=== PATIENT | male | born 1970 | race Caucasian/White ===

== ENCOUNTER 2017-07-19 10:08 | Inpatient (IN) | payer OTHER ==
[~2017-07-19] VITALS: Ht 182.8 cm; Wt 74.5 kg
--- NOTE | ~2017-07-19 | CON ---
[place], [place] REPORT OF CONSULTATION NAME: [facility]: [id number] UNIT #: [id number] ROOM: [facility] DOCTOR: NICK MITCHELL MD BIRTHDATE: [birth year] DOS: 07/27/2017 PSYCHIATRIC CONSULT. CHIEF COMPLAINT: "I got a go to work this morning, I need to get out of here." HISTORY OF PRESENT ILLNESS: This is a 47-year-old white male who was admitted to ICU following significant alcohol detoxification. The patient has been actively going through DTs and has been found to be extremely delirious. At times, the patient is alert and oriented; at other times, he is talking out of his head. He has repeatedly stated that he needs to help his brother who has been visiting him. This has not happened whatsoever. This morning in my interview, he was convinced that he needed to go to work here. He was not able to tell me how long he has been here nor was he able to carry on a lengthy conversation due to his overall confusion. Chart indicates that he drinks approximately 12-18 beers per day and smokes a pack of cigarettes. He denies any type of other illicit drug use. The patient does have a history of psychiatric illness and has been on multiple psychotropics. MENTAL STATUS: The patient is alert and oriented to self only. He is not oriented to time frame. His responses are short and simple at times, nonsensical. There are no overt auditory or visual hallucinations. There is presence of delusions and he is rather disjointed in his thinking. Short term memory is poor. DIAGNOSIS: Major depression, recurrent; alcohol dependence and alcohol withdrawal. PLAN: I will discontinue his trazodone and Depakote. I am afraid the Depakote along with his alcohol abuse will put too much of a tax on his liver. I will check a serum ammonia level this morning, in case it is high, this could be also a reason for his episodic confusion. I will start him on Risperdal 1 mg twice daily to decrease some of the delusions and mood lability and use Remeron 15 mg at bedtime, also to aid sleep. He would be a good candidate once he is through the DTs to start on either Vivitrol or Campral to decrease the alcohol craving. Should he require further intervention, please feel free to contact me at any time. [place], [place] REPORT OF CONSULTATION NAME: SASHAJAMI D UNIT #: [id number] ROOM: [facility] DOCTOR: NICK MITCHELL MD BIRTHDATE: [birth year] NICK MITCHELL MD CM:CONSTR:REPORT OF CONSULTATION [id number] 07/27/17 1022 interface
--- NOTE | ~2017-07-19 | CON ---
[place], [place] REPORT OF CONSULTATION NAME: JAMI BAEZ [facility] #: [id number] UNIT #: [id number] ROOM: [facility] DOCTOR: KAIT SMALL ED.D) BIRTHDATE: [birth year] DOS: 07/26/2017 HISTORY OF PRESENT ILLNESS: The patient is a 47-year-old male, referred by the hospitalist for psychological evaluation. At the present time, this patient is in the intensive care unit at [facility]. He states he is single and has 4 adult children. 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 His family physician is Dr. Agarwal. His medical history is pertinent for seizure disorder, COPD, myocardial infarction, alcohol dependence, alcohol withdrawal delirium. His medications include trazodone, Depakote, Geodon, Keppra, Lovenox, Zofran, Senokot and albuterol. This patient states that he does not use any drugs that are not prescribed, but he drinks significant amounts of beer. Each day, he drinks 12 to 18 beers per day and smokes 1 pack of cigarettes per day. He did go to rehabilitation for his alcoholism one time at [facility]. He states that he knows he is an alcoholic and he needs treatment. He is in the hospital under [facility]. When I first evaluated this patient, he was fairly lucid. I went back to see him shortly later and he appeared to be somewhat delirious. He is obviously suffering from alcohol withdrawal delirium. Most likely his cognitive status will clear, but it is difficult to determine if and when this will occur. He may be placed in a nursing facility short term or also a rehabilitation center short term and case management is working on that issue right now. In the meantime, he clearly is delirious and will need long-term rehabilitation, most likely. DIAGNOSIS: 1. Alcohol dependence. 2. Alcohol withdrawal delirium. RECOMMENDATIONS: The patient will need 24-hour care once he is discharged from the hospital until his mental status clears. Thank you very much for this consult. KAIT SMALL ED.D CM:CONSTR:REPORT OF CONSULTATION [id number] 07/27/17 0743 interface
--- NOTE | ~2017-07-19 | CON ---
[place], [place] REPORT OF CONSULTATION NAME: [facility] [id number] UNIT #: [id number] ROOM: [facility] DOCTOR: DAVE PAVON BIRTHDATE: [birth year] DOS: 07/21/2017 HISTORY OF PRESENT ILLNESS: This is a 47-year-old male with past medical history of alcohol abuse, COPD, who presents to [facility] shakes and seizures. The patient with [facility] before apparently history of homeless as well. Apparently, the patient was sober for approximately 5 months and then started drinking again past withdrawals from alcohol is required him to be intubated. PAST MEDICAL HISTORY: COPD, emphysema, seizure, NM. MENTAL STATUS: The patient was nonverbal. He just received Haldol and Geodon. Apparently, he was discharged yesterday by the doctor and then 6 hours later, they found him down the lobby, waiting for ride and confused, so he was brought back up to the unit. He became quite agitated during that time, so I could not get a good mental status on him. At this point in time, I am just going to try to stabilize some of the medications, reviewed labs and then once he becomes a little more alert and oriented, we can re-evaluate at that time. I do see that some of the left lights are off. His liver enzymes are elevated. His alcohol on the was quite high. PLAN: He is currently on 250 mg of Depakote in the morning and 500 mg at the night to keep him on that. He is getting trazodone 50 mg at bedtime for sleep and then another dose p.r.n. if needed for sleep. We will continue with that as well. I am getting rid of the Benadryl at this point in time, we continue with the Ativan p.o. or IM for anxiety and agitation. I am going to stop the Haldol and try Geodon 20 mg q.4 hours, no more than 2 doses in 24-hour period for increased agitation and behaviors. He also has p.r.n. Vistaril available to him as well. He is also on withdrawal protocol, it appears. Try to avoid Haldol at this point in time. Since, he is sedated right now, we will allow him to acclimate, calm down and then we can re-evaluate if we need to add anything else. He is resting comfortably. JAYNE PAVON CNP CM:CONSTR:REPORT OF CONSULTATION 1105 07/21/172025 interface
[2017-07-19 11:10] VITALS: BP 126/84
--- NOTE | 2017-07-19 11:27 | NUR ---
MSADMTime: N A 47 year old MALE admitted to under services of SHABANA COWAN DO Pt. [place] Chief complaint: WITHDRAWAL. FR[place] GILLESPIE
[2017-07-19 11:55] LABS: BILIRUBIN NEGATIVE (NEGATIVE); BLOOD TRACE-INTACT (NEGATIVE); CLARITY CLEAR (CLEAR); COLOR YELLOW (YELLOW); GLUCOSE NEGATIVE (NEGATIVE); KETONE NEGATIVE (NEGATIVE); LEUKO ESTERASE NEGATIVE (NEGATIVE); NITRITE NEGATIVE (NEGATIVE); PH 5.5 (5.0-9.0); SPECIFIC GRAVITY <= 1.005 (1.005-1.030); UROBILINOGEN 0.2 E.U./dl (0.2-1.0)
[2017-07-19 11:58] LABS: BASO # 0.1 10*3/uL (0.0-0.1); EOS # 0.1 10*3/uL (0.0-0.4); EOS % 1.8 % (1.0-4.0); HEMATOCRIT 43.1 % (42.0-52.0); HEMOGLOBIN 15.4 g/dl (14.0-18.0); LYMPH # 2.3 10*3/uL (1.3-4.4); LYMPH % 36.1 % (27.0-41.0); MEAN CELL VOLUME 92.1 fl (80.0-94.0); MEAN CORPUSCULAR HGB 32.9 pg (27.0-31.0); MEAN CORPUSCULAR HGB CONC 35.7 g/dl (33.0-37.0); MEAN PLATELET VOLUME 10.1 fl (9.6-12.3); MONO # 0.7 10*3/uL (0.1-1.0); MONO % 11.9 % (3.0-9.0); NEUT # 3.1 10*3/uL (2.3-7.9); PLATELET COUNT AUTOMATED 105 10*3/uL (130-400); RED BLOOD COUNT 4.68 10*6/uL (4.50-5.90); RED CELL DISTRI WIDTH 11.8 % (0-14.5); WHITE BLOOD COUNT 6.2 10*3/uL (4.8-10.8)
[2017-07-19 12:00] LABS: RBC 0-2 rbc/hpf (0-2)
[2017-07-19 12:12] LABS: ALBUMIN 3.8 gm/dl (3.1-4.5); ALKALINE PHOSPHATASE 122 U/L (45-117); BUN 3 mg/dl (7-24); CHLORIDE 84 mmol/L (98-107); CREATININE 0.55 mg/dL (0.70-1.30); LIPASE 109 U/L (73-393); POTASSIUM 4.5 mmol/L (3.5-5.1); SGOT/AST 144 IU/L (3-35); SGPT/ALT 98 U/L (12-78); SODIUM 123 mmol/L (136-145); TOTAL PROTEIN 8.1 gm/dL (6.4-8.2)
[2017-07-19 12:12] LABS: URINE AMPHETAMINES < 1000 (1000ng/ml); URINE BARBITURATES < 200 (200ng/ml); URINE BENZODIAZEPINES < 200 (200ng/ml); URINE CANNABINOIDS (THC) < 50 (50ng/ml); URINE COCAINE < 300 (300ng/ml); URINE METHADONE < 300 (300ng/ml); URINE OPIATES < 300 (300ng/ml)
[2017-07-19 12:18] LABS: URINE PHENCYCLIDINE < 25 (25ng/ml)
[2017-07-19] MEDS ORDERED: TRAZODONE50 MG PO (13:25)
[2017-07-19] MEDS ORDERED: Motrin,Rufen800 MG PO (13:25)
[2017-07-19] MEDS ORDERED: DEPAKOTE DR500 MG PO (13:28)
[2017-07-19] MEDS ORDERED: KEPPRA500 MG PO (13:28)
[2017-07-19] MEDS ORDERED: DEPAKOTE250 MG PO (13:30)
[2017-07-19] MEDS ORDERED: SYMBICORT (13:38)
[2017-07-19] MEDS ORDERED: PROVENTIL HFA6.7 GM INH ×2 (13:39→13:41)
--- NOTE | 2017-07-19 13:42 | NUR ---
[facility] CALLED MEDS VERIFIED, DR CHAVEZ NOTIFIED.
[2017-07-19 16:00] VITALS: BP 117/69
--- NOTE | 2017-07-19 17:12 | NUR ---
PT MEDICATED WITH IV ATIVAN FOR C/O "FEELING LIKE I MAY HAVE A SIEZURE". CALL LIGHT IN REACH. WILL MONITOR
[2017-07-19 20:00] VITALS: BP 115/62
--- NOTE | 2017-07-19 20:00 | NUR ---
AAOX3 LYING IN BED. SKIN WARM & DRY. BANANA BAG INFUSING WITHOUT DIFFICULTY INTO LEFT ANTECUBITAL; SITE ASYMPTOMATIC. PT. VOICES NO C/O AT THIS TIME. CALL LIGHT WITHIN REACH.
--- NOTE | 2017-07-19 20:33 | NUR ---
MEDICATED WITH ROBAXIN FOR MUSCLE ACHES PAINS & VISTARIL FOR ANXIETY.
--- NOTE | 2017-07-19 22:00 | NUR ---
RESTING IN BED; MEDICATIONS GIVEN EARLIER APPEAR TO BE EFFECTIVE. TOOK PO MEDICATIONS WITHOUT DIFFICULTY. CALL LIGHT WITHIN REACH.
[2017-07-20] VITALS: BP 140/80
--- NOTE | 2017-07-20 | NUR ---
MEDICATED WITH ATIVAN & TRAZODONE.
--- NOTE | 2017-07-20 02:00 | NUR ---
APPEARS TO BE SLEEPING; MEDICATIONS GIVEN EARLIER APPARENTLY EFFECTIVE.
[2017-07-20 04:00] VITALS: BP 143/77
[2017-07-20 06:12] LABS: BASO # 0.1 10*3/uL (0.0-0.1); BASO % 1.1 % (0.0-1.0); EOS # 0.2 10*3/uL (0.0-0.4); EOS % 2.7 % (1.0-4.0); HEMATOCRIT 41.7 % (42.0-52.0); HEMOGLOBIN 14.3 g/dl (14.0-18.0); LYMPH # 1.6 10*3/uL (1.3-4.4); LYMPH % 24.3 % (27.0-41.0); MEAN CELL VOLUME 93.7 fl (80.0-94.0); MEAN CORPUSCULAR HGB 32.1 pg (27.0-31.0); MEAN CORPUSCULAR HGB CONC 34.3 g/dl (33.0-37.0); MEAN PLATELET VOLUME 10.6 fl (9.6-12.3); MONO # 1.1 10*3/uL (0.1-1.0); MONO % 16.4 % (3.0-9.0); NEUT # 3.5 10*3/uL (2.3-7.9); PLATELET COUNT AUTOMATED 98 10*3/uL (130-400); RED BLOOD COUNT 4.45 10*6/uL (4.50-5.90); WHITE BLOOD COUNT 6.4 10*3/uL (4.8-10.8)
[2017-07-20 06:29] LABS: BUN 8 mg/dl (7-24); CHLORIDE 97 mmol/L (98-107); POTASSIUM 4.1 mmol/L (3.5-5.1); SODIUM 134 mmol/L (136-145)
--- NOTE | 2017-07-20 06:30 | NUR ---
CALLED DR. UMANZOR PERTAINING TO PT'S HEART RATE BEING ELEVATED SEVERAL TIMES THROUGHOUT THE NIGHT. NO NEW ORDERS RECEIVED.
[2017-07-20 06:31] LABS: CREATININE 0.64 mg/dL (0.70-1.30); PHOSPHOROUS 3.9 mg/dL (2.5-4.9)
--- NOTE | 2017-07-20 07:30 | NUR ---
ASSUMED CARE OF PT AT THIS TIME, PT RESTING IN BED DOING BREATHING TREATMENT AT THIS TIME
[2017-07-20 08:00] VITALS: BP 152/90
--- NOTE | 2017-07-20 09:20 | NUR ---
PT C/O INCREASED ANXIETY, ADMINISTERED ATUVAN PRN PER ORDERS, WILL MONITOR EFFECTS. PT ALSO C/O MUSCLE CRAMPS AND REQUESTED SOMETHING TO ASSIST WITH SYMPTOMS ADMINSITERED ROBAXIN PO PRN PER ORDERS WILL MONIOR EFFECTS
--- NOTE | 2017-07-20 11:20 | NUR ---
PT GIVEN PRN PO MOTRIN AND VISTARIL FOR COMPLAINTS OF HEADACHE AND ANXIETY. WILL MONITOR EFFECTIVENESS.
[2017-07-20 12:00] VITALS: BP 134/90
--- NOTE | 2017-07-20 12:04 | NUR ---
PT RESTING IN BED WITH EYES CLOSED, MEDS SEEM TO BE EFFECTIVE.
--- NOTE | 2017-07-20 14:52 | NUR ---
PT STATING THAT NICODERM PATCH NOT EFFECTIVE REQUESTED ALTERNATIVE, ADMINISTERED NICOTROL INHALER WILL MONITOR EFFECTS
[2017-07-20 16:00] VITALS: BP 145/87
--- NOTE | 2017-07-20 19:53 | NUR ---
PRN KEKE AND VISTARIL GIVEN D/T PT. SHOWING ANXIETY AND C/O ACHYNESS. CALL LIGHT WITHIN REACH.
[2017-07-20 20:00] VITALS: BP 144/98
--- NOTE | 2017-07-20 20:23 | NUR ---
PRN MEDICATIONS GIVEN ARE EFFECTIVE, PT. RESTING COMFORTABLY.
--- NOTE | 2017-07-20 23:18 | NUR ---
Shift chart check completed.
[2017-07-21] VITALS: BP 155/98
--- NOTE | 2017-07-21 03:10 | NUR ---
PT AT THIS TIME REQUESTING TO LEAVE HOSPITAL. PATIENT STATES THAT HE CALLED HIS MOTHER AND THAT SHE IS ON HER WAY TO PICK HIM UP. THIS NURSE ASKED THE PATIENT IF HE KNEW WHERE HE WAS, PATIENT STATED THAT HE WAS IN A DOCTORS OFFICE IN [facility]. THIS NURSE STATED THAT HE WAS IN [facility]. THE PATIENT STATED THAT HE DIDN'T REMEMBER. THIS NURSE STATED THAT THE DOCTOR WOULD HAVE TO TALK TO THE PATIENT BEFORE HE LEFT. DR. REED CALLED AT THIS TIME
--- NOTE | 2017-07-21 03:15 | NUR ---
DR. REED UP TO TALK TO PATIENT. STATED THAT THE PATIENT IS ALERT AND ORIENTED TO PERSON AND TIME, BUT NOT PLACE. DR. REED STATED THAT HE WAS NOT A HARM TO HIMSELF OR ANYONE ELSE SO WE CANNOT STOP HIM FROM LEAVING.
--- NOTE | 2017-07-21 03:20 | NUR ---
IN TO GET PATIENT TO SIGN AMA PAPER. PATIENT STATED THAT HIS MOM WAS HERE AND THAT HE HAD TO GO. PATIENT POINTED OUT THE WINDOW AND STATED THAT SHE WAS OUT THERE, THIS NURSE STATED THAT THERE WERE NO CARS OUT THERE. PATIENT SIGNED AMA PAPER. HEP LOCK REMOVED FROM LEFT AC AND OUTSIDE MEDICAL SALES REPRESENTATIVE DISCONTINUED. PATIENT PROCEEDED TO WALK DOWN HALLWAY TOWARD LOCKED ELEVATORS, DROPPED HIS BAG AND THEN PROCEEDED TO ROAM THE HALLWAY.
--- NOTE | 2017-07-21 03:25 | NUR ---
RENAN SANTANA, AUDIO VISUAL ENGINEER NOTIFIED OF PATIENT LEAVING AMA AND OF THE SITUATION.
--- NOTE | 2017-07-21 04:30 | NUR ---
AT THIS TIME PATIENT FOUND WONDERING AROUND DOWN IN EMERGENCY ROOM LOBBY. PATIENT REDIRECTED BACK UPSTAIRS TO ROOM HE WAS PREVIOUSLY ADMITTED TO. SELVAGE MACHINE OPERATOR RENAN SANTANA AND DR. REED UP TO FLOOR. PATIENT STATES THAT IT IS AGAINST HIS GNOSTICIST TO HOLD HIM HERE AND THAT HE WANTS TO LEAVE. SISTER AND MOTHER BELIEVED, PER PATIENT, THAT HE WAS BEING KICKED OUT OF THE HOSPITAL. THE PATIENT LEFT OF HIS OWN FREE WILL. AT THIS TIME, THE DISCHARGE IS BEING REVERSED AND THE PATIENT IS BEING BROUGHT BACK TO THE FLOOR FOR INPATIENT SERVICES. PATIENT UPSET. DR. REED ORDERED 5MG OF IM HALDOL AND 2MG OF IM ATIVAN TO BE GIVEN
--- NOTE | 2017-07-21 04:59 | NUR ---
AT THIS TIME IM HALDOL AND ATIVAN GIVEN FOR AGITATION. PATIENT COOPERATIVE AND UNDERSTANDING. STATED THAT HE WANTED TO RELAX AND THEN GO HOME. THIS NURSE EXPLAINED TO THE PATIENT THAT HE IS IN NO STATE TO GO HOME AT THIS TIME. THIS NURSE STATED THAT HE WAS IN [place] AND NOT LIKE [place] LIKE HE BELIEVED HE WAS. PATIENT IS EASILY REDIRECTED. CALL LIGHT WITHIN REACH, PATIENT NOW LAYING IN BED. WILL CONTINUE TO MONITOR
--- NOTE | 2017-07-21 05:19 | NUR ---
CALLED DR. REED AT THIS TIME PERTAINING TO IF HE WANTED TO PUT THE PATIENT BACK ON THE MONITOR AND ATTEMPT TO RESTART THE IV. DR. REED ASKED IF THE PATIENT WAS CALM AT ALL, THIS NURSE STATED THAT HE JUST RECENTLY ATTEMPTED TO GET OUT OF BED, DR. REED STATED TO NOT ATTEMPT TO PUT HIM BACK ON THE MONITOR OR START ANOTHER IV UNTIL THE PATIENT IS CALMED DOWN.
--- NOTE | 2017-07-21 06:27 | NUR ---
DR. REED CALLED AT THIS TIME AND NOTIFIED THAT THIS PT. IS BEING AGRESSIVE, STATING THAT HE IS LEAVING AND WE CANT HOLD HIM AGAINST HIS WILL.
--- NOTE | 2017-07-21 06:34 | NUR ---
PATIENT REMOVED HEART MONITOR THREW IT IN THE GARBAGE. PATIENT IS STATING "YOU CAN'T KEEP ME AGAINST MY WILL" THE PATIENTS SISTER WANTED TO BE NOTIFIED IF PATIENT ACTS OUT AGAIN WHEN SISTER WAS CALLED AND INFORMED OF WHAT WAS GOING ON WITH HER BROTHER SHE STATED "WHEN HE DID THIS BEFORE AND WAS AT THE OTHER HOSPITAL HE WAS VIOLENT AND HE NEEDED TO BE WATCHED BY SECURITY. THAT IS WHY WE BROUGHT HIM TO YOU." DR REED WAS NOTIFED ABOUT PATIENTS ACTIONS AND HOW THE FAMILY FEELS. DR REED IS PUTTING A CONSULT IN FOR DR MITCHELL.
--- NOTE | 2017-07-21 06:51 | NUR ---
JAYNE PAVON CONSULTED FOR PT. REGARDING CONFUSION, IRRITABILITY, AND DELERIUM. NO ORDERS RECIEVED.
--- NOTE | 2017-07-21 06:57 | NUR ---
AT THIS TIME PATIENTS SISTER HUNTER CALLED IN. HUNTER STATED THAT THE PATIENT HAS BEEN AN ALCOHOLIC ALL OF HIS LIFE AND WAS LIVING IN [place] AND HAD TO BE BROUGHT TO [place] BECAUSE THE PATIENT WAS FOUND HAVING SEIZURES IN THE STREET. THE PATIENT WAS PREVIOUSLY IN [facility] FOR THE SAME THING AND HAD TO BE SO SEDATED THAT HE HAD TO BE IN THE ICU ON [facility]. HUNTER STATED THAT SHE WAS IN THE PROCESS OF BECOMING THE PATIENTS MEDICAL POWER OF SKIN TOGGLER. AND THAT IF SHE IS NEEDED BY ANYONE TO CALL HER AT [phone] WHICH IS HER CELL OR [phone] WHICH IS HER HOME PHONE NUMBER. SHE STATED THAT SHE CAN BE REACHED AT ALL TIMES AT EITHER OF THESE NUMBERS. AND THAT IF SHE HAS TO SHE WILL FIND A WAY TO COME DOWN TO THE HOSPITAL. HUNTER STATED THAT PRIOR TO PATIENTS ADMISSION, SHE NOTIFIED THE [facility] DIRECTOR OF THE PATIENTS PAST MEDICAL HISTORY PERTAINING TO HIS ALCOHOL WITHDRAWAL AND SHE WAS ASSURED THAT THE PATIENT WOULD BE MANAGED ACCORDINGLY.
[2017-07-21 08:00] VITALS: BP 134/83
--- NOTE | 2017-07-21 08:05 | NUR ---
PT AMBULATED WITH 2 ASSIST BACK TO ICCU. PT AWAKE BUT DROWSY. PT ORIENTED TO SELF ONLY AT THIS TIME. VSS. DR ELYSSA BUSHED SLIPPED PT.
--- NOTE | 2017-07-21 08:35 | NUR ---
PT ALERT TO PERSON ONLY. UNABLE TO GO OVER PT'S HOME MEDS AT THIS TIME.
--- NOTE | 2017-07-21 08:59 | NUR ---
JAYNE PAVON NOTIFIED OF DR MITCHELL CONSULT. SHE STATED SHE WILL BE UP TO SEE PT LATER TODAY.
--- NOTE | 2017-07-21 10:00 | NUR ---
PT'S SISTER,HUNTER. CALLED IN REGARDING PT. UPDATED HER ON PT'S CONDITION. HUNTER STATED THAT SHE IS GIONG TO TRY AND GET MEDICAL POA FOR PT. I DID INFORM HER OF PT'S PINK SLIPPED STATUS. HUNTER ALSO ASKED IF PT WOULD BE DISCHARGED TO [facility] ON SUNDAY. I INFORMED HER THAT I WAS NOT AWARE OF DISCHARGE PLANS AT THIS TIME.
--- NOTE | 2017-07-21 10:29 | NUR ---
PT SLEEPING. NO DISTRESS NOTED.
--- NOTE | 2017-07-21 11:24 | NUR ---
DR HURTADO IN TO SEE PT. JAYNE PAVON IN TO SEE PT EARLIER. NEW ORDERS RECEIVED.
[2017-07-21 16:00] VITALS: BP 113/84
--- NOTE | 2017-07-21 19:02 | NUR ---
24 HR chart check completed.
--- NOTE | 2017-07-21 19:30 | NUR ---
PATIENT ANXIOUS. ATTEMPTED TO REORIENT MULTIPLE TIMES. TREMORS NOTED. RESTLESS. ATIVAN GIVEN ORDERED FOR DT'S.
[2017-07-21 20:00] VITALS: BP 133/85
--- NOTE | 2017-07-21 20:30 | NUR ---
PATIENT ASLEEP. NO SIGNS OF DT'S. ATIVAN EFFECTIVE.
--- NOTE | 2017-07-21 21:11 | NUR ---
SCHEDULED LIBRIUM AND TRAZODONE GIVEN.
--- NOTE | 2017-07-21 22:11 | NUR ---
PATIENT ASLEEP. NO SIGNS OF DT'S OR INSOMNIA. LIBRIUM AND TRAZODONE EFFECTIVE.
[2017-07-22] VITALS: BP 144/85
--- NOTE | 2017-07-22 01:50 | NUR ---
ATIVAN GIVEN FOR DT'S. +TREMORS, RESTLESS, + DIAPHORESIS.
--- NOTE | 2017-07-22 02:50 | NUR ---
PATIENT ASLEEP. CONTINUES TO HAVE DIAPHORESIS. ATIVAN EFFECTIVE FOR DT'S
[2017-07-22 04:00] VITALS: BP 105/66
--- NOTE | 2017-07-22 05:42 | NUR ---
SCHEDULED LIBRIUM GIVEN.
[2017-07-22 06:33] LABS: BASO # 0.1 10*3/uL (0.0-0.1); BASO % 1.3 % (0.0-1.0); EOS # 0.2 10*3/uL (0.0-0.4); EOS % 3.6 % (1.0-4.0); HEMATOCRIT 42.3 % (42.0-52.0); HEMOGLOBIN 14.9 g/dl (14.0-18.0); LYMPH # 2.1 10*3/uL (1.3-4.4); LYMPH % 32.8 % (27.0-41.0); MEAN CELL VOLUME 95.1 fl (80.0-94.0); MEAN CORPUSCULAR HGB 33.5 pg (27.0-31.0); MEAN CORPUSCULAR HGB CONC 35.2 g/dl (33.0-37.0); MEAN PLATELET VOLUME 10.6 fl (9.6-12.3); MONO % 15.7 % (3.0-9.0); NEUT # 2.9 10*3/uL (2.3-7.9); NEUT % 46.3 % (47.0-73.0); PLATELET COUNT AUTOMATED 120 10*3/uL (130-400); RED BLOOD COUNT 4.45 10*6/uL (4.50-5.90); RED CELL DISTRI WIDTH 12.1 % (0-14.5); WHITE BLOOD COUNT 6.3 10*3/uL (4.8-10.8)
--- NOTE | 2017-07-22 06:40 | NUR ---
PATIENT ASLEEP. NO SIGNS OF DT'S. LIBRIUM EFFECTIVE.
[2017-07-22 06:45] LABS: BUN 15 mg/dl (7-24); CHLORIDE 97 mmol/L (98-107); CREATININE 0.63 mg/dL (0.70-1.30); MAGNESIUM 2.2 mg/dL (1.5-2.1); PHOSPHOROUS 4.1 mg/dL (2.5-4.9); POTASSIUM 3.9 mmol/L (3.5-5.1); SODIUM 135 mmol/L (136-145)
--- NOTE | 2017-07-22 07:02 | NUR ---
Shift chart check completed.
[2017-07-22 08:00] VITALS: BP 144/89
--- NOTE | 2017-07-22 08:12 | NUR ---
ROBAXIN & VISTARIL GIVEN FOR ANXIETY & MUSCLE ACHES. PER THE PATIENT HE NEEDS TO BE OUT OF HERE BY SUNDAY HE IS TO GO TO [facility]. PT IS JOKING WIHT THE STAFF AT PRESENT. HEP LOCK SECURE & PATENT. VSS. DENIES HALLUCINATIONS, DIAPHORESIS. MILD TREMORS FELT BUT NOT VISIBLE.
--- NOTE | 2017-07-22 08:31 | NUR ---
MED REC UPDATED BUT UNABLE TO FIX SYMBICORT THE MED REC IS FINALIZED D/T THE PATIENT LEAVING AMA THE OTHER DAY. THE BID MEDICATIONS SHOULD BE Q12H SO NOT TO GIVE TOO CLOSE TOGETHER.
--- NOTE | 2017-07-22 09:30 | NUR ---
RESTING WITH EYES CLOSED - MORE RELAXED SINCE MEDICATED.
--- NOTE | 2017-07-22 11:02 | NUR ---
DR HURTADO HERE - SPOKE WITH THE PATIENT.
--- NOTE | 2017-07-22 11:28 | NUR ---
BED ALARM REMAINS ON TO ALERT STAFF TO GETTING UP PATIENT REMAINS UNSTEADY ON HIS FEET. HEP LOCK REMAINS SECURE & PATENT
[2017-07-22 12:00] VITALS: BP 116/78
--- NOTE | 2017-07-22 12:29 | NUR ---
ATIVAN GIVEN FOR INCREASE IN RESTLESSNESS, TREMORS NOW VISIBLE, & DRINKING FROM A CUP WITH THE LID ON.
--- NOTE | 2017-07-22 13:19 | NUR ---
CALMER SINCE MEDICATED WITH ATIVAN. LESS RESTLESSNESS, TREMORS LESS VISIBLE
--- NOTE | 2017-07-22 13:34 | NUR ---
PER THE SISTER THE PATIENT IS TO BE KEPT HERE UNTIL TRANSPORTED TO TO [facility] ON SUNDAY. PER THE SISTER HE WILL JUST START DRINKING AGAIN HE IS A BAD DECISION MAKER. SHE SAID HER UNDERSTANDING WAS THAT THE PINK SLIP WAS IN FORCE UNTIL HE WAS TRANSFERRED. EXPLAINED THAT WE CANNOT KEEP HIM AGAINST HIS WILL IF HE IS OF SOUND MIND AND SHOWS NO THREAT TO HIMSELF OR OTHERS. EXPLAINED THAT MAKING A BAD DECISION IS NOT WHAT WE WANT BUT WE CANNOT FORCE HIM TO MAKE THE RIGHT DECISIONS. wILL INFORM THE DOCTOR OF HER CONCERNS AND WISHES THAT THE PATIENT BE HELD UNTIL HE CAN BE TRANSFERRED TO [facility]. ATTEMPTED TO EXPLAIN THAT THERE IS NO GUARANTEE THAT THEY WILL HAVE QA BED FOR HIM ON SUNDAY.
--- NOTE | 2017-07-22 13:59 | NUR ---
ROUTINE LIBRIUM GIVEN PER ORDERS. PT REMAINS DISORIENTED AT TIMES & VISIBLY SHAKEY
--- NOTE | 2017-07-22 14:50 | NUR ---
THIS NURSE ALONG WITH THE HOT DIP PLATER SPOKE WITH THE PATIENT'S OTHER SISTER ATTEMPTING TO EXPLAIN THE PINK SLIP, POSSIBLE DISCHARGE MODE/TIME, AND ABILITY TO DETERMINE COMPETENCY. WE DID INFORM HER THAT HE IS NOT LEAVING TODAY AND THAT HE IS BEING MEDICATED TO ASSIST WITH WITHDRAWLS. VOICED UNDERSTANDING OF HER FRUSTRATION BUT THAT WE ARE ALSO LIMITED BY LAW/RULES.
[2017-07-22 16:00] VITALS: BP 115/88
--- NOTE | 2017-07-22 16:11 | NUR ---
PATIENT VERY RESTLESS/ANXIOUS. GETTING UP AND DOWN OUT OF BED. PATIENT VERY UNSTEADY. MEDICATED WITH VISTARIL PER PRN ORDER. WILL CONTINUE TO MONITOR.
--- NOTE | 2017-07-22 17:16 | NUR ---
PATIENT REMAINS ANXIOUS/RESTLESS. PATIENT JUMPS UP OUT OF BED. GAIT VERY UNSTEADY. PATIENT PULLING OFF CONDUCTOR SYMPHONIC ORCHESTRA AND GOWN. PATIENT TALKING ABOUT LEAVING AND GOING OUTSIDE TO SMOKE. RNS REDIRECTION INEFFECTIVE. MEDICATED WITH GEODON 20MG IM PER PRN ORDER. WILL CONTINUE TO MONITOR.
--- NOTE | 2017-07-22 18:16 | NUR ---
PATIENT REMAINS VERY RESTLESS/ANXIOUS. MEDICATED WITH ATIVAN PER PRN ORDER.
--- NOTE | 2017-07-22 19:48 | NUR ---
DR. SMALL NOTIFIED OF CONSULT.
[2017-07-22 20:00] VITALS: BP 183/87
--- NOTE | 2017-07-22 20:30 | NUR ---
PT. ATTEMPTING TO GET OUT OF BED, GAIT UNSTEADY, BED ALARM ON. CONFUSED AND DISORIENTED, STATED HE NEEDS TO GO TO WORK. UNABLE TO REORIENT. HEP LOCK IN RAN ASYMPT. LUNGS DIMINISHED BUT CLEAR BILAT, PULSE OX 99% ON RA. ABDOMEN SOFT NONDISTENDED AND NORMO. NO PERIPHERAL EDEMA NOTED. HIRAM GUTHRIE RN
--- NOTE | 2017-07-22 21:21 | NUR ---
PT. GIVEN LIBRIUM, DYSREL, ATIVAN AND VISTARIL ORDERED FOR ANXIETY AND TREMORS.
[2017-07-23] VITALS: BP 145/88
--- NOTE | 2017-07-23 00:43 | NUR ---
GEODON GIVEN ORDERED FOR RESTLESSNESS AND ATTEMPTING TO GET OUT OF BED. HALLUCINATING AND DETERMINED TO "GO TO WORK". UNABLE TO REORIENT.
--- NOTE | 2017-07-23 00:44 | NUR ---
PT. DROWSY, LESS TREMBLING NOTED. LIBRIUM, DYSEREL, ATIVAN AND VISTARIL MILDLY EFFECTIVE.
--- NOTE | 2017-07-23 03:14 | NUR ---
PT. REMAINS ACTIVE AND CONFUSED. GEODON MILDLY EFFECTIVE. HIRAM GUTHRIE RN
[2017-07-23 04:00] VITALS: BP 134/92
[2017-07-23 06:15] LABS: BASO # 0.1 10*3/uL (0.0-0.1); BASO % 0.9 % (0.0-1.0); EOS # 0.2 10*3/uL (0.0-0.4); EOS % 2.8 % (1.0-4.0); HEMATOCRIT 43.5 % (42.0-52.0); LYMPH # 1.6 10*3/uL (1.3-4.4); LYMPH % 23.4 % (27.0-41.0); MEAN CELL VOLUME 96.5 fl (80.0-94.0); MEAN CORPUSCULAR HGB 33.3 pg (27.0-31.0); MEAN CORPUSCULAR HGB CONC 34.5 g/dl (33.0-37.0); MEAN PLATELET VOLUME 10.3 fl (9.6-12.3); MONO # 0.9 10*3/uL (0.1-1.0); NEUT # 4.1 10*3/uL (2.3-7.9); NEUT % 59.3 % (47.0-73.0); PLATELET COUNT AUTOMATED 127 10*3/uL (130-400); RED BLOOD COUNT 4.51 10*6/uL (4.50-5.90); RED CELL DISTRI WIDTH 12.1 % (0-14.5); WHITE BLOOD COUNT 6.9 10*3/uL (4.8-10.8)
[2017-07-23 06:25] LABS: BUN 16 mg/dl (7-24); CHLORIDE 99 mmol/L (98-107); CREATININE 0.62 mg/dL (0.70-1.30); POTASSIUM 3.3 mmol/L (3.5-5.1); SODIUM 136 mmol/L (136-145)
--- NOTE | 2017-07-23 07:12 | NUR ---
24 HR chart check completed.
[2017-07-23 08:00] VITALS: BP 129/96
--- NOTE | 2017-07-23 10:27 | NUR ---
0815 MEDICATED WITH ATIVAN 1MG IV FOR AGITATION. 1010 MEDICATED WITH ATIVAN 1MG IV FOR AGITATION.
[2017-07-23 12:00] VITALS: BP 141/85
[2017-07-23 16:00] VITALS: BP 142/95
--- NOTE | 2017-07-23 19:49 | NUR ---
PT. YELLING THAT PA IS GETTING ON HIS NERVES AND STATES HE WANTS TO GO TO WORK. TOLD HER TO GET AWAY FROM HIM WHILE ATTEMPTING TO OBTAIN VITALS. TALKED TO PT AND PT AGREED TO LET PA GET VITALS. GEODON GIVEN AT 1935 ORDERED. PT. CONTINUES TO BECOME AGGRESSIVE WITH STAFF AND ATTEMPTING TO GET OUT OF BED CONTINUOUSLY. ATIVAN GIVEN AT 194 ALONG WITH BENTYL, ROBAXIN AND VISTARIL. WILL CONTINUE TO MONITOR. HIRAM GUTHRIE RN
[2017-07-23 20:00] VITALS: BP 139/88
--- NOTE | 2017-07-23 20:03 | NUR ---
PT. CONTINUOUSLY MOVING AND ATTEMPTING TO GET OVER SIDE RAILS. HEP LOCK IN RAN ASYMPT. LUNGS DIMINISHED BILAT. ABDOMEN SOFT, NONDISTENDED AND NORMO. NO PERIPHERAL EDEMA NOTED. CONTINUES TO BE CONFUSED AND COMBATIVE. HIRAM GUTHRIE RN
--- NOTE | 2017-07-23 21:20 | NUR ---
PT. MUCH CALMER, GEODON, ATIVAN AND VISTARIL EFFECTIVE. ALSO NO COMPLAINTS OF MUSCLE ACHES OR STOMACH PAIN, BENTYL AND ROBAXIN EFFECTIVE. HIRAM GUTHRIE RN
--- NOTE | 2017-07-23 22:41 | NUR ---
PT. GIVEN ATIVAN FOR CONTINUED ANXIETY AND AGGITATION WITH ATTEMPTS TO GET OUT OF BED AND GO TO WORK. UNABLE TO REORIENT. HIRAM GUTHRIE RN
--- NOTE | 2017-07-23 23:06 | NUR ---
PT. GIVEN ATIVAN AT 2235 FOR CONTINUED AGGITATION. CURRENTLY RESTING COMFORTABLY, AROUSES EASILY UPON ENTERING ROOM BUT QUIETLY RESTING. HIRAM GUTHRIE RN
[2017-07-24] VITALS: BP 135/83
--- NOTE | 2017-07-24 00:26 | NUR ---
PT'S HR OCCASSIONALLY UP TO 120 & 150'S NONSUSTAINED. RETURNING TO 70'S. PT. CONTINUES TO BE RESTLESS BUT SLEEPING INTERMITTENTLY. HIRAM GUTHRIE RN
[2017-07-24 04:00] VITALS: BP 137/94
--- NOTE | 2017-07-24 04:21 | NUR ---
ATIVAN GIVEN ORDERED AT 0414 FOR RESTLESSNESS AND AGGITATION AND TREMORS HIRAM GUTHRIE RN.
--- NOTE | 2017-07-24 05:01 | NUR ---
PT. MORE COOPERATIVE, SLEEPING BRIEF INTERVALS. HIRAM GUTHRIE RN
[2017-07-24 06:24] LABS: HEMATOCRIT 45.5 % (42.0-52.0); HEMOGLOBIN 15.7 g/dl (14.0-18.0); MEAN CELL VOLUME 96.6 fl (80.0-94.0); MEAN CORPUSCULAR HGB 33.3 pg (27.0-31.0); MEAN CORPUSCULAR HGB CONC 34.5 g/dl (33.0-37.0); MEAN PLATELET VOLUME 10.2 fl (9.6-12.3); PLATELET COUNT AUTOMATED 158 10*3/uL (130-400); RED BLOOD COUNT 4.71 10*6/uL (4.50-5.90); RED CELL DISTRI WIDTH 12.1 % (0-14.5); WHITE BLOOD COUNT 11.6 10*3/uL (4.8-10.8)
[2017-07-24 06:43] LABS: ALBUMIN 3.8 gm/dl (3.1-4.5); BUN 19 mg/dl (7-24); CHLORIDE 98 mmol/L (98-107); CREATININE 0.69 mg/dL (0.70-1.30); LIPASE 73 U/L (73-393); PHOSPHOROUS 3.8 mg/dL (2.5-4.9); POTASSIUM 4.2 mmol/L (3.5-5.1); SGPT/ALT 41 U/L (12-78); SODIUM 136 mmol/L (136-145); TOTAL PROTEIN 7.9 gm/dL (6.4-8.2)
[2017-07-24 06:44] LABS: ALKALINE PHOSPHATASE 105 U/L (45-117); MAGNESIUM 2.1 mg/dL (1.5-2.1); SGOT/AST 25 IU/L (3-35)
[2017-07-24 07:33] LABS: PLATELET SUFFICIENCY NORMAL (NORMAL); TOTAL CELLS COUNTED 100 #CELLS
--- NOTE | 2017-07-24 07:50 | NUR ---
RESTING IN BED. MOVING AROUND ATTEMPTING TO SIT UP. SPEECH GARBLED AND DIFFICULT TO UNDERSTAND. LUNGS CLEAR BILATERALLY. NO EDEMA NOTED. BRIEF INTACT. HEP LOCK INTACT TO LEFT UPPER ARM.
[2017-07-24 08:00] VITALS: BP 107/80
--- NOTE | 2017-07-24 09:20 | NUR ---
Medicated with geodon 20mg im for restlessness and agitation. Attempting to sit up in bed and throw legs over siderails. Dr. Jacobsen here to see patient.
--- NOTE | 2017-07-24 10:00 | NUR ---
RESTING BACK ON PILLOW. EYES CLOSED. MUCH MORE RELAXED.
--- NOTE | 2017-07-24 11:46 | NUR ---
D/C PLAN: PATIENT WANTS INPATIENT TREATMENT. PATIENT UNDERSTANDS AND AGREES ON [facility] HIS AFTERCARE PLAN. [facility] IS HOLDING A BED FOR HIM AT THEIR FACILITY. [facility] CAN TAKE HIM SUNDAY, . PATIENT WILL NEED TO BE THERE BY 1PM. PATIENT WILL NEED TRANSPORTATION. ALLIGATOR TRAPPER WILL SET PATIENT UP TO BE TRANSPORTED TO [facility] AT DISCHARGE. JORGE BRAN B.A. ALLIGATOR TRAPPER
[2017-07-24 12:00] VITALS: BP 144/82
--- NOTE | 2017-07-24 15:15 | NUR ---
MOVING AROUND IN BED. VOICES THAT HE HAS TO PEE. URINAL PROVIDED AND VOICED 200CC DARK DEDRA URINE.
--- NOTE | 2017-07-24 15:50 | NUR ---
MOVING AROUND IN BED. DENIES ANY COMPLAINTS.
[2017-07-24 16:00] VITALS: BP 141/85
--- NOTE | 2017-07-24 19:49 | NUR ---
PT. GIVEN GEODON ORDERED FOR RESTLESSNESS AND ATTEMPTS TO GO HOME/WORK AND OUT TO SMOKE. ALERT TO PLACE AND PERSON AT TIMES. REORIENTS EASILY BUT REMAINS SLIGHTLY CONFUSED. ASKED IF HE COULD GO IN ROOM BEHIND BED, WHEN INFORMED PT THAT THERE WAS A WALL AND NO MORE ROOMS. HE SAID "AW OKAY". COMPLIANT AT PRESENT, NOT AGGRESSIVE. DISORIENTED AT TIMES. UNSTEADY ON FEET. HIRAM GUTHRIE RN
[2017-07-24 20:00] VITALS: BP 150/87
--- NOTE | 2017-07-24 20:09 | NUR ---
PT. MORE RELAXED, LESS ANXIOUS, HR FROM 150'S NONSUSTAINED TO 80-90'S CURRENTLY, JEETDON EFFECTIVE.
[2017-07-25] VITALS (7 sets, daily range): BP systolic 121–167; BP diastolic 81–98
--- NOTE | 2017-07-25 00:12 | NUR ---
PT. GETTING MORE CONFUSED NIGHT GOES ON. YELLING TO LET BROTHER OUT OF BATHROOM, OPENED DOOR TO SHOW PT THAT HIS BROTHER WAS NOT IN THE BATHROOM. PUT BACK TO BED MULTIPLE TIMES IN THE LAST HOUR. HIRAM GUTHRIE RN
[2017-07-25 05:58] LABS: HEMATOCRIT 40.9 % (42.0-52.0); HEMOGLOBIN 13.9 g/dl (14.0-18.0); MEAN CELL VOLUME 95.3 fl (80.0-94.0); MEAN CORPUSCULAR HGB 32.4 pg (27.0-31.0); MEAN PLATELET VOLUME 10.1 fl (9.6-12.3); PLATELET COUNT AUTOMATED 162 10*3/uL (130-400); RED BLOOD COUNT 4.29 10*6/uL (4.50-5.90); RED CELL DISTRI WIDTH 11.9 % (0-14.5)
[2017-07-25 06:21] LABS: ALBUMIN 3.4 gm/dl (3.1-4.5); ALKALINE PHOSPHATASE 86 U/L (45-117); BUN 19 mg/dl (7-24); CHLORIDE 101 mmol/L (98-107); CREATININE 0.63 mg/dL (0.70-1.30); PHOSPHOROUS 3.3 mg/dL (2.5-4.9); POTASSIUM 3.9 mmol/L (3.5-5.1); SGOT/AST 14 IU/L (3-35); SGPT/ALT 30 U/L (12-78); SODIUM 136 mmol/L (136-145); TOTAL PROTEIN 6.8 gm/dL (6.4-8.2)
[2017-07-25 06:30] LABS: ATYPICAL LYMPHS 2 % (0-0); PLATELET SUFFICIENCY NORMAL (NORMAL); TOTAL CELLS COUNTED 100 #CELLS
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
--- NOTE | 2017-07-25 08:10 | NUR ---
LESS AGITATED. EYES CLOSED. GEODON EFFECTIVE.
--- NOTE | 2017-07-25 14:25 | NUR ---
MEDICATED WITH GEODON 20MG IM FOR RESTLESSNESS AND ANXIETY. GOT OUT OF BED AND WAS STANDING IN DOORWAY, WANTING A CIGARETTE.
--- NOTE | 2017-07-25 15:00 | NUR ---
RESTING IN BED WITH EYES CLOSED. SPEECH GARBLED. DROWSY. GEODON EFFECTIVE.
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
--- NOTE | 2017-07-25 21:30 | NUR ---
PATIENT ASKED FOR PAIN PILL, SAID HE WAS ACHING FROM LAYING IN BED. MOTRIN WAS GIVEN. WILL CONTINUE TO MONITOR.
--- NOTE | 2017-07-25 23:00 | NUR ---
MOTRIN EFFECTIVE FOR PATIENTS ACHES.
[2017-07-26 04:00] VITALS: BP 121/81
--- NOTE | 2017-07-26 04:54 | NUR ---
PATIENT AWOKE WITH BACK PAIN, STATED HE HAS HAD IT FOR A LONG TIME, AND THATS ONE OF THE REASONS HE DRINKS ETOH. MOTRIN WAS GIVEN. WILL MONITOR AND REASSESS.
--- NOTE | 2017-07-26 06:00 | NUR ---
MOTRIN EFFECTIVE FOR PAIN.
--- NOTE | 2017-07-26 07:43 | NUR ---
PT RESTLESS MUMBLING TRYING TO CRAWL OUT OF BED OVER THE SIDE RAIL. PT KNOWS THAT HE IS IN THE HOSPITAL BUT [facility]INE RENAE ANSWERS TO OTHER QUESTIONS. PT MEDICATED WITH ATIVAN 1MG IV AT THIS TIME FOR DT'S.
[2017-07-26 08:00] VITALS: BP 136/84
--- NOTE | 2017-07-26 08:37 | NUR ---
PT RESTING QUIETLY IN BED WITH EYES CLOSED SINCE BEING MEDICATED WITH ATIVAN IV.
--- NOTE | 2017-07-26 10:55 | NUR ---
Spoke with Julianne from [facility], discussing discharge plans. She stated although she has to technically discharge this patient from [facility] because patient remains in [facility], she is continuing to work for placement at [facility]. She also stated the family has sent him to a longterm in the past and when she talks with them again she will find out which NH he has been to and let me know.
--- NOTE | 2017-07-26 11:15 | NUR ---
DR Gonzalo SMALL MADE AWARE OF NEW CONSULT ORDER.
--- NOTE | 2017-07-26 11:18 | NUR ---
PT MEDICATED WITH VISTARIL 50MG PO FOR MILD ANXIETY.
[2017-07-26 12:00] VITALS: BP 143/74
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
--- NOTE | 2017-07-26 13:11 | NUR ---
PHYSICAL THERAPY PAtient evaluated in [facility]- full evaluation to follow. Continue with PT as per plan of carw with fall, alcohol withdraw and acute debiliy precautions. MAy require SNF for impaired mobility to return to PLOF. PAtient is moderate complexity via chart review, tests and evaluation: 55343. Thank you for this referral. Radha Aaron,PT
[2017-07-26 16:00] VITALS: BP 130/83
--- NOTE | 2017-07-26 16:53 | NUR ---
PATIENT VERY RESTLESS/AGITATED. PULLING OFF GOWN. STANDING UP OUT OF BED. GAIT VERY UNSTEADY. PATIENT TALKING ABOUT GOING OUTSIDE TO SMOKE. MEDICATED WITH ATIVAN 1MG IV PER PRN ORDER. WILL CONTINUE TO MONITOR.
--- NOTE | 2017-07-26 17:37 | NUR ---
PATIENT JUMPED UP TO THE END OF BED. WHEN PRICING/SIGNAGE TEAM MEMBER ATTEMPTED TO REDIRECT. PATIENT STATED "I AM LEAVING. I DONT CARE WHAT YOU SAY." RNS ASKED PATIENT TO GET BACK TO BED BEFOR HE FELL OUT OF THE BED. PATIENT STATED "NO I AM NOT". CODE THAD CALLED. PATIENT MEDICATED WITH GEODON 20MG IM PER PRN ORDER. WILL CONTINUE TO MONITOR.
[2017-07-26 20:00] VITALS: BP 158/89
--- NOTE | 2017-07-26 22:40 | NUR ---
PT COMBATIVE AND REFUSING TO STAY IN BED. CONFUSED AND WANTING TO GO CUT THE GRASS. MEDICATED WITH GEODON PER PRN ORDER.
[2017-07-27] VITALS: BP 104/64
[2017-07-27 04:00] VITALS: BP 140/83
--- NOTE | 2017-07-27 05:25 | NUR ---
MEDICATED WITH ATIVAN PER PRN ORDER FOR AGITATION/DT'S.
[2017-07-27 08:00] VITALS: BP 143/97
--- NOTE | 2017-07-27 10:56 | NUR ---
PATIENT SITTING UP IN RECLINER CHAIR. HEART RATE 131 PER CM. NO C/O VOICED. WILL CONTINUE TO MONITOR.
[2017-07-27 12:00] VITALS: BP 117/75
--- NOTE | 2017-07-27 12:26 | NUR ---
PATIENT UP AMBULATING IN [facility] WITH PHYSICAL THERAPY. HEART RATE UP TO 160'S PER CM. HERE IN THE [facility] AND MADE AWARE.
[2017-07-27] MEDS ORDERED: MIRTAZAPINE15 M2 PO (12:28)
[2017-07-27] MEDS ORDERED: RISPERIDONE1 MG PO (12:28)
--- NOTE | 2017-07-27 12:34 | NUR ---
PHYSICAL THERAPY Tom seen this PM 1:1 for his therapy gait. Pt supine in bed on this visit. Transfer supine/sit, sitting balance CG X 1. Sit/stand and standing balance CGA X 1. Followed by gait total 170' X 1, and needing verbal cueing for gait safety, balance and his turns. Pt HR went to 140 BPM with this, after sitting 2 min HR 111 BPM, Pt having no complaints, but at this time is not safe up ambulating independent, Pt with his call light, treatment time 17 min. JO-ANN ROMANO POULTRY HANGER.
--- NOTE | 2017-07-27 13:19 | NUR ---
D/C PLANNING: DEVULCANIZER HEAD CONTACTED [facility] AND SPOKE WITH ALBINO, THE DEVULCANIZER HEAD. SHE STATED THAT SHE WOULD HAVE A DETOX BED AVAILABLE FOR PATIENT TODAY AT 2PM, IF PATIENT WOULD BE DISCHARGED. DEVULCANIZER HEAD, NATALIA SMITH, CONTACTED [facility] AND SPOKE WITH TIAGO,PRIVATE EQUITY ASSOCIATE. HE STATED THAT HE WOULD HAVE TO RUN PATIENT'S INSURANCE TO MAKE SURE PATIENT IS NOT CAPPED OUT FOR DETOX. TIAGO STATED THAT HE WOULD CALL NATALIA SMITH BACK. IF THERE IS A BED AVAILABLE, PATIENT CAN BE TRANSPORTED THROUGH [facility] ONCE HE IS DISCHARGED. [facility] . JORGE BRAN B.A. DEVULCANIZER HEAD.
--- NOTE | 2017-07-27 13:31 | NUR ---
D/C PLANNING: INTAKE CORRDINATOR RECEIVED CALL BACK FROM THE VOTING MACHINE REPAIRER, TIAGO FROM [facility]. HE STATED THAT HE SPOKE TO HIS TEST ENG SHE STATED THAT SHE DOES NOT FEEL COMFORTABLE TAKING HIM DUE TO HIM STILL CONTINUING TO HAVE WITHDRAWAL SYMPTOMS. JORGE BRAN B.A WRAPPING CLERK
[2017-07-27 16:00] VITALS: BP 119/68
--- NOTE | 2017-07-27 19:31 | NUR ---
MEDICATED WITH PRN VISTARIL PER ORDER. PATIENT MILDLY CONFUSED.
--- NOTE | 2017-07-27 20:30 | NUR ---
VISTARIL HELPED A LITTLE.
[2017-07-28] VITALS: BP 105/62
[2017-07-28 04:23] LABS: BASO # 0.1 10*3/uL (0.0-0.1); BASO % 1.9 % (0.0-1.0); EOS # 0.3 10*3/uL (0.0-0.4); EOS % 4.2 % (1.0-4.0); HEMATOCRIT 38.7 % (42.0-52.0); HEMOGLOBIN 13.5 g/dl (14.0-18.0); LYMPH # 2.7 10*3/uL (1.3-4.4); LYMPH % 39.7 % (27.0-41.0); MEAN CELL VOLUME 95.8 fl (80.0-94.0); MEAN CORPUSCULAR HGB 33.4 pg (27.0-31.0); MEAN CORPUSCULAR HGB CONC 34.9 g/dl (33.0-37.0); MEAN PLATELET VOLUME 10.3 fl (9.6-12.3); MONO # 1.3 10*3/uL (0.1-1.0); MONO % 19.3 % (3.0-9.0); NEUT # 2.4 10*3/uL (2.3-7.9); NEUT % 34.5 % (47.0-73.0); PLATELET COUNT AUTOMATED 226 10*3/uL (130-400); RED BLOOD COUNT 4.04 10*6/uL (4.50-5.90); RED CELL DISTRI WIDTH 11.7 % (0-14.5); WHITE BLOOD COUNT 6.9 10*3/uL (4.8-10.8)
[2017-07-28 04:49] LABS: CREATININE 0.66 mg/dL (0.70-1.30)
[2017-07-28 07:40] VITALS: BP 128/78
--- NOTE | 2017-07-28 09:58 | NUR ---
Ambulatory to shower for am care. Complete and returned to room. Mother called in and update was given. Medicated for c/o backpain and headache 07/29.
[2017-07-28 16:14] VITALS: BP 106/54
[2017-07-28 20:32] VITALS: BP 140/85
[2017-07-29] VITALS: BP 153/92
[2017-07-29 08:00] VITALS: BP 130/95
--- NOTE | 2017-07-29 09:03 | NUR ---
PT COMPLAINS OF GENERALIZED PAIN. MOTRIN GIVEN. SEE MAR
--- NOTE | 2017-07-29 10:17 | NUR ---
PT CONTINUES TO COMPLAIN OF GENERALIZED PAIN AND HEADACHE. TYLENOL GIVEN. SEE MAR.
[2017-07-29 12:00] VITALS: BP 117/68
--- NOTE | 2017-07-29 12:29 | NUR ---
PT STATES HEADACHE SLIGHTLY BETTER. REQUEST NICOTINE PATCH. SEE MAR
[2017-07-29 16:00] VITALS: BP 117/72
--- NOTE | 2017-07-29 16:51 | NUR ---
PT STATES FEELING ANXIOUS. PRN VISTARIL GIVEN. SEE MAR.
[2017-07-30] VITALS: BP 113/82
--- NOTE | 2017-07-30 02:16 | NUR ---
24 HR chart check completed.
[2017-07-30 08:00] VITALS: BP 124/85
--- NOTE | 2017-07-30 08:19 | NUR ---
PHYSICAL THERAPY Tom seen this AM 1:1 for his therapy session and doing much better now. All transfers were independent. Gait total 525' X 1, independent, no LOB. Mr Dallas said that he walks the halls my himself now. Pt back up in his bedside chair call light and phone, treatment time 20 min. JO-ANN ROMANO COVER OPERATOR.
--- NOTE | 2017-07-30 14:00 | NUR ---
REC'D CALL FROM MRS. GIRALDO, PT'S MOTHER. SHE DOESNT WANT PT DC. SHE SAID [facility] PROMISED TO GET HIM PLACED IN [facility]. STATES HE HAS NO HOME TO GO HOME TO AND IF DC, HE WILL DRINK. I EXPLAINED THAT [facility] IS WORKING ON THIS BUT IF PT WANTED TO LEAVE, WE CANNOT STOP HIM IF HE'S ALERT AND ORIENTED. MOTHER VERY ANXIOUS. ATTEMPTED TO CALM. SHE WILL WAIT TO HEAR FROM [facility].
--- NOTE | 2017-07-30 14:00 | NUR ---
MOTHER HAS CALLED MULTIPLE TIMES TODAY RE: DISCHARGE. SHE STATES PT IS HAS NO HOME AND CANNOT BE DISCHARGED AND WANTS TO KNOW PLAN OF CARE. THIS RN SPOKE WITH CASE MANAGEMENT, [facility] AND HOSPITALIST OFFICE STAFF. [facility] TO CALL MOTHER AND EXPLIAN PLAN OF CARE.
[2017-07-30 16:00] VITALS: BP 131/83
--- NOTE | 2017-07-30 17:00 | NUR ---
DR SAMAYOA CALLED RE: PT DISCHARGED OR IS PT STAYING AGAIN? HE STATES DISCHARGE CANCELLED FOR TODAY.
--- NOTE | 2017-07-30 19:55 | NUR ---
PATIENT OOB IN CHAIR. NO C/O AT THIS TIME. STATES HE FEELS BETTER THAN WHEN HE FIRST CAME IN HERE. NO SXS OF DISTRESS. RESPIRATIONS EASY/REGULAR. CALL LIGHT IS IN REACH.
--- NOTE | 2017-07-30 22:25 | NUR ---
PATIENT REQUESTED AND RECEIVED PRN MEDICATIONS ORDERED: BENTYL, MOTRIN, ROBAXIN, AND VISTARIL FOR C/O ABDOMINAL CRAMPING, MUSCLE ACHES AND PAINS AND ANXIETY. WILL MONITOR EFFECTIVENESS
--- NOTE | 2017-07-30 23:30 | NUR ---
EARLIER MEDICATIONS APPEAR EFFECTIVE. PATIENT SLEEPING WITH NO SXS OF DISTRESS. RESPIRATIONS EASY/REGULAR. CALL LIGHT IN REACH.
[2017-07-31] VITALS: BP 121/78
--- NOTE | 2017-07-31 03:58 | NUR ---
PATIENT SLEEPING QUIETLY IN BED. RESPIRATIONS EASY/REGULAR. NO SXS OF DISTRESS. CALL LIGHT IN REACH.
[2017-07-31 05:55] LABS: CREATININE 0.73 mg/dL (0.70-1.30)
[2017-07-31 05:58] LABS: BASO # 0.2 10*3/uL (0.0-0.1); BASO % 1.7 % (0.0-1.0); EOS # 0.4 10*3/uL (0.0-0.4); EOS % 4.1 % (1.0-4.0); HEMATOCRIT 38.1 % (42.0-52.0); HEMOGLOBIN 12.9 g/dl (14.0-18.0); LYMPH # 2.4 10*3/uL (1.3-4.4); LYMPH % 27.1 % (27.0-41.0); MEAN CELL VOLUME 97.2 fl (80.0-94.0); MEAN CORPUSCULAR HGB 32.9 pg (27.0-31.0); MEAN CORPUSCULAR HGB CONC 33.9 g/dl (33.0-37.0); MEAN PLATELET VOLUME 10.8 fl (9.6-12.3); MONO # 1.3 10*3/uL (0.1-1.0); MONO % 14.8 % (3.0-9.0); NEUT # 4.6 10*3/uL (2.3-7.9); PLATELET COUNT AUTOMATED 252 10*3/uL (130-400); RED BLOOD COUNT 3.92 10*6/uL (4.50-5.90); RED CELL DISTRI WIDTH 11.8 % (0-14.5); WHITE BLOOD COUNT 8.8 10*3/uL (4.8-10.8)
--- NOTE | 2017-07-31 06:44 | NUR ---
PATIENT SLEPT QUIETLY THROUGHOUT THE NIGHT. STATED THIS MORNING THAT "TODAY SHOULD BE INTERESTING" HE STATES HE IS READY TO GET OUT OF HERE. DOES NOT WANT TO GO TO [facility] BUT KNOWS THAT HE NEEDS TO.
--- NOTE | 2017-07-31 07:36 | NUR ---
OOB IN RECLINER AWAKE ALERT AND ORIENTEDX3, C/O MILD TREMOR NOT VISIBLE AND BACK PAIN OF 8/10. REQUESTS MOTRIN WHICH WAS GIVEN AT THIS TIME. NO S/S OF DISTRESS. SEE ASSESS. WILL CONT TO MONITOR. CALL LIGHT IN REACH.
--- NOTE | 2017-07-31 07:59 | NUR ---
PHYSICAL THERAPY Mr Haynes seen this AM and said that he is ready to be D/C. Gait Pt one more time. All transfers was independent. Gait total 530' independent no LOB one verbal cue to just slow down. Pt is independent in his room. JO-ANN ROMANO LOAD MIXER.
[2017-07-31 08:00] VITALS: BP 138/80
--- NOTE | 2017-07-31 08:17 | NUR ---
certified financial planner in to see patient to discuss discharge plans and provide list of homeless shelters. Patient stated he would like to talk with Julianne from [facility]. He has changed his mind and now wants to go to [facility] when they have an available bed. Julianne of [facility] notified.
--- NOTE | 2017-07-31 08:30 | NUR ---
VETERANS' COORDINATOR EXPLAINED PHONE CALL FROM PT MOTHER YESTERDAY. JORGE IN [facility] SAID PT AGREES TO [facility] NOW. JORGE WILL CALL HIS MOTHER.
--- NOTE | 2017-07-31 08:36 | NUR ---
PT STATES AFTER MOTRIN PAIN IS 3/10 TO BACK. WILL CONT TO MONITOR.
--- NOTE | 2017-07-31 10:29 | NUR ---
I called and spoke with both sisters of the patient, Briana and Monique. I explained to both of them that this patient has been medically stable and is discharged. I will be providing the patient with a list of homeless shelters and providing a Taxi if necessary for transportation. Monique asked if she could just have 30 minutes to contact her mother and see if the patient is allowed to go home. She stated she will call me back shortly
--- NOTE | 2017-07-31 11:20 | NUR ---
Received call from Karlee Duarte, they are currently working on getting patient into [facility] in [facility].
--- NOTE | 2017-07-31 15:58 | NUR ---
[facility] Discharge Plan: Pt will be picked up at approximately 8:00 pm [facility] for transport to [facility] in [place], [place]. Pt has agreed to this aftercare treatment plan and is aware of the time of his departure. Pt's familiy has also been informed of the aftercare treatment plan and are aware of the time of pt's dearture. Karlee Morris Service Cooridnator [facility].
[2017-07-31 16:00] VITALS: BP 113/76
--- NOTE | 2017-07-31 19:59 | NUR ---
PATIENT REQUESTED AND RECEIVED PRN MOTRIN AND ROBAXIN ORDERED FOR C/O NECK,BACK, AND HEAD PAIN RATED A 9.
--- NOTE | 2017-07-31 21:00 | NUR ---
PATIENT AND FAMILY ARE VERY AGGRAVATED. [facility] WAS SUPPOSED TO PICK PATIENT UP AT 8:00 PM AND THEY HAVE STILL NOT ARRIVED. PATIENTS FAMILY STATES IF THEY DO SHOW UP AFTER THEY LEAVE THEY DO NOT WANT HIM LEAVING WITH THEM IN THE MIDDLE OF THE NIGHT. PATIENT WAS WANTING TO SIGN OUT AMA BUT MYSELG AND FAMILY ENCOURAGED TO STAY BECAUSE IT IS BEST FOR HIM TO GO TO REHAB. I MEDICATED HIM WITH PRN VISTARIL ORDERD PER PATIENTS REQUEST FOR ANXIETY.
--- NOTE | 2017-07-31 21:32 | NUR ---
[facility] ARRIVED AT THIS TIME. PATIENT DISCHARGED IN CARE OF THEM. PATIENTS FAMILY WAS STILL HERE AND APPROVED THE DEPARTURE. VERBALIZED UNDERSTANDING OF DISCHARGE INSTRUCTIONS. IV REMOVED AND PRESSURE DRESSING APPLIED.
--- NOTE | 2017-08-01 06:27 | NUR ---
PHYSICAL THERAPY CO-SIGN I approve of the Phyical Therapy notes written above. GANESH RUIZ PT
== END 2017-07-31 21:32 | DRG 897 ==
LOC: 4E 10:08 → ICCU 10:08 → 4E 14:15 → ICCU 07-21 07:14 → 4E 07-28 17:17
PROVIDERS: Emergency Medicine; Family Medicine; Student in an Organized Health Care Education/Training Program; ADMIT Internal Medicine
DX: F10.231 Alcohol dependence with withdrawal delirium (principal); E87.8 Other disorders of electrolyte and fluid balance, not elsewhere classified; D69.6 Thrombocytopenia, unspecified; E44.0 Moderate protein-calorie malnutrition; J43.9 Emphysema, unspecified; F33.9 Major depressive disorder, recurrent, unspecified; E87.1 Hypo-osmolality and hyponatremia; R31.29 Other microscopic hematuria; R74.0 Nonspecific elevation of levels of transaminase and lactic acid dehydrogenase [LDH]; G40.909 Epilepsy, unspecified, not intractable, without status epilepticus; F17.210 Nicotine dependence, cigarettes, uncomplicated; R25.1 Tremor, unspecified; R00.0 Tachycardia, unspecified; Z71.6 Tobacco abuse counseling; Z83.3 Family history of diabetes mellitus; Z83.6 Family history of other diseases of the respiratory system; Z88.0 Allergy status to penicillin; Z79.899 Other long term (current) drug therapy; I25.2 Old myocardial infarction; Z68.22 Body mass index [BMI] 22.0-22.9, adult